=== PATIENT | male | born 2005 | race Two or more races ===

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

== ENCOUNTER 2025-01-08 13:00 | Outpatient (RCR) | payer MEDICAID, SELFPAY ==
--- NOTE | 2024-12-26 11:07 | PTNOTE_ITS ---
PT Outpatient Daily Note OP Daily Note Outpatient Physical Therapy Treatment Date: 12/26/24 Visit Reasons: FRACTURE LEFT ANKLE Subjective: Pt reports L ankle is doing ok, still gets pain especially with increase activity. Objective: Please see flow sheet for ther ex list. Assessment: Pt tolerated interventions with minimal pain, near end of session c/o light burn ing sensation of B foot and tarsals. Plan: Continue with poC. Length of Time (minutes) of Treatment: 30 Minutes Procedure Charges Therapeutic Exercise 30 minutes: Yes
--- NOTE | 2025-01-02 11:10 | PT.ODAYNRPT ---
PT Outpatient Daily Note OP Daily Note Outpatient Physical Therapy Treatment Date: 01/02/25 Visit Reasons: FRACTURE LEFT ANKLE Subjective: Pt reports L ankle was a little sore after last session but overall felt good. Objective: Please see flow sheet for ther ex list. Assessment: Added squat exercise, pt completed with no complaints. Plan: Continue with pOC. Length of Time (minutes) of Treatment: 30 Minutes Procedure Charges Therapeutic Exercise 30 minutes: Yes
== END 2025-01-21 23:59 | disposition home or self-care (01) ==
LOC: CPTX 13:00
PROVIDERS: PCP Orthopaedic Surgery; Referring Provider Orthopaedic Surgery; Visit Provider Orthopaedic Surgery
DX: M25.572 Pain in left ankle and joints of left foot (principal); S82.842D Displaced bimalleolar fracture of left lower leg, subsequent encounter for closed fracture with routine healing; X58.XXXD Exposure to other specified factors, subsequent encounter
CPT/HCPCS: 97110